=== PATIENT | male | born 2000 | race African-American/Black ===

== ENCOUNTER 2023-10-23 14:24 | Inpatient (IN) | payer OTHER ==
[~2023-10-23] VITALS: Ht 180.3 cm; Wt 86.4 kg
[2023-10-23 15:12] LABS: HEMATOCRIT 47.3 % (42.0-52.0); HEMOGLOBIN 16.4 g/dl (13.5-17.5); MEAN CORPUSCULAR HEMOGLOBIN 29.3 pg (27.0-33.0); MEAN CORPUSCULAR HGB CONC 34.7 g/dl (32.0-36.5); MEAN CORPUSCULAR VOLUME 84.6 fl (80.0-96.0); PLATELET COUNT, AUTOMATED 210 10^3/uL (150-450); RED BLOOD COUNT 5.59 10^6/uL (4.30-6.10); WHITE BLOOD COUNT 4.4 10^3/uL (4.0-10.0)
[2023-10-23 15:38] LABS: AMPHETAMINES LEVEL URINE NEGATIVE (NEGATIVE); BARBITURATES URINE NEGATIVE (NEGATIVE); CANNABINOIDS URINE NEGATIVE (NEGATIVE); PHENCYCLIDINE URINE NEGATIVE (NEGATIVE)
[2023-10-23 15:39] LABS: BENZODIAZEPINES URINE NEGATIVE (NEGATIVE); COCAINE METABOLITE URINE NEGATIVE (NEGATIVE); METHADONE URINE NEGATIVE (NEGATIVE); OPIATES URINE NEGATIVE (NEGATIVE)
[2023-10-23 15:41] LABS: ETHYL ALCOHOL (ETHANOL) < 0.003 % (0.000-0.010)
[2023-10-23 15:42] LABS: ALBUMIN 4.3 G/DL (3.2-5.2); ALKALINE PHOSPHATASE 83 U/L (46-116); ALT/SGPT 18 U/L (7.0-40); AST/SGOT 17 U/L (<34); BILIRUBIN,DIRECT 0.2 MG/DL (<0.4); BILIRUBIN,TOTAL 0.7 MG/DL (0.3-1.2); BLOOD UREA NITROGEN 19 MG/DL (9-23); CALCIUM LEVEL 9.5 MG/DL (8.5-10.1); CARBON DIOXIDE LEVEL 27 MMOL/L (20-31); CHLORIDE LEVEL 103 MMOL/L (98-107); CREATININE FOR GFR 0.99 MG/DL (0.70-1.30); GLOMERULAR FILTRATION RATE > 60.0 (>60); GLUCOSE, FASTING 80 MG/DL (60-100); POTASSIUM SERUM 4.2 MMOL/L (3.5-5.1); SALICYLATE LEVEL < 3.0 MG/DL (<30); SODIUM LEVEL 137 MMOL/L (136-145); TOTAL PROTEIN 7.3 G/DL (5.7-8.2)
[2023-10-23 15:46] LABS: THYROID STIMULATING HORMONE 1.315 uIU/ML (0.55-4.78)
[2023-10-23] MEDS ORDERED: HOME MED LIST COMPLETE! XX SCH (17:05)
[2023-10-23] MEDS ORDERED: MOM 30ML SUSPENSION UDC PO PRN (18:00)
[2023-10-23] MEDS ORDERED: traZODone 50 MG TAB PO PRN (18:00)
[2023-10-23] MEDS ORDERED: IBUPROFEN 400MG TAB PO PRN (18:00)
[2023-10-23] MEDS ORDERED: MAALOX 30 ML SUSP *UDC PO PRN (18:00)
[2023-10-23] MEDS ORDERED: diphenhydrAMINE 25MG CAP PO PRN (18:00)
[2023-10-23] MEDS ORDERED: ACETAMINOPHEN TAB 650MG DOSE (2X325MG) PO PRN (18:00)
[2023-10-23 20:36] VITALS: BP 132/70; TEMP 98; O2SAT 100
[2023-10-24 06:28] VITALS: BP 105/59; TEMP 97.4; O2SAT 99
[2023-10-24] MEDS: buPROPion **XL** TABLET 150MG (WELLBUTRIN XL) PO SCH (12:45)
[2023-10-24 16:12] VITALS: BP 104/51; TEMP 97.1; O2SAT 99
[2023-10-25 06:17] VITALS: BP 110/57; TEMP 97.9; O2SAT 100
[2023-10-25 17:03] VITALS: BP 137/81; TEMP 98; O2SAT 98
[2023-10-26 06:27] VITALS: BP 134/67; TEMP 97.8; O2SAT 100
[2023-10-26] MEDS ORDERED: BUPR150T12 PO (10:32)
== END 2023-10-26 11:03 | disposition home or self-care (01) | DRG 885 ==
LOC: M ED 14:24 → M ED INP 18:55 → M PSY 19:57
PROVIDERS: ADMIT Student in an Organized Health Care Education/Training Program; ATTEND Student in an Organized Health Care Education/Training Program
DX: F32.89 Other specified depressive episodes (principal); R45.851 Suicidal ideations; F43.21 Adjustment disorder with depressed mood; Z63.5 Disruption of family by separation and divorce; Z11.52 Encounter for screening for COVID-19